=== PATIENT | female | born 1980 | race Caucasian/White ===

== ENCOUNTER 2017-07-21 20:19 | Inpatient (IN) | payer MEDICAID, OTHER ==
[2017-07-21] VITALS (12 sets, daily range): BP systolic 126–138; BP diastolic 75–88; PULSE 70–131; RESP 18
[~2017-07-21] VITALS: Ht 172.7 cm; Wt 77.0 kg
[~2017-07-21 20:19] MED LIST: DIPHTH/TETANUS/ACEL PERTUSSIS (BOOSTER) 0.5 ML VIAL/PFS IM ONE; MEASLES, MUMPS, RUBELLA VACCINE 0.5 ML VIAL SQ ONE
[2017-07-21] MEDS ORDERED: LACTATED RINGER'S 1000 ML INJ 1,000 ML IV SCH (20:55)
[2017-07-21] MEDS ORDERED: LACTATED RINGER'S 1000 ML INJ 1,000 ML IV PRN (20:55)
[2017-07-21] MEDS ORDERED: MINERAL OIL 10 ML VIAL TOPICAL PRN (21:00)
[2017-07-21] MEDS ORDERED: PENICILLIN G POTASSIUM INJ 5,000,000 UNITS in SODIUM CHLORIDE 0.9% INJ 100 ML IV ONE (21:00)
[2017-07-21] MEDS ORDERED: ONDANSETRON HCL 4 MG/2 ML VIAL IV PUSH PRN (21:00)
[2017-07-21] MEDS ORDERED: OXYTOCIN 30 UNITS-500ML PREMIX 500 ML IV ONE (21:00)
[2017-07-21] MEDS ORDERED: LIDOCAINE HCL 1% 50 ML VIAL INFIL PRN (21:00)
[2017-07-21] MEDS ORDERED: CITRIC ACID-SODIUM CITRATE LIQ 30 ML UDC PO SCH (21:00)
[2017-07-21] MEDS ORDERED: LIDOCAINE HCL 1% 50 ML VIAL I-DERMAL PRN (21:00)
[2017-07-21] MEDS ORDERED: SODIUM CHLORID 0.9% 500 ML INJ 500 ML IV PRN (21:00)
[2017-07-21] MEDS ORDERED: PREN29TA PO (21:05)
--- NOTE | 2017-07-21 21:14 | HHI.HP ---
History & Physical H&P HPI Chief Complaint vb Date Seen: Jul 21, 2017 Time Seen: 21:01 Travel History International Travel<30 Days: No Contact w/Intl Traveler<30Days: No Known Affected Area: No History of Present Illness HPI pt. presents w/ c/o vb. pt. is ? 36 weeks by fundal height and is a states been having vb. pt. states baby for adoption. pt. had intercourse last pm. irreg ctxs, +FM, no lof. on exam pt. w. noted blood in vault and cervix 8/ 100/0 w/ bulging membranes. Weeks Gestation: 36 Para: 2 : 4 Last Menstrual Period: Oct 21, 2016 : 1 History Past Medical History Medical History: Denies Significant Hx Obstetric History Obstetric History , s/p x 2, tab x 1 Past Surgical History Surgical History: No Previous Surgery Family History Family History: Negative Social History Narrative Social History +thc Alcohol Use: No Tobacco Use: Yes Substance Abuse: Yes Allergies-Medications (Allergen,Severity, Reaction): Coded Allergies: No Known Allergies (Verified Allergy, Severe, 12/28/02) Uncoded Allergies: N (Allergy, Unknown, 12/29/02) NKA (Allergy, Unknown, 12/29/02) Review of Systems Except as stated in HPI: all other systems reviewed are Neg Physical Exam Narrative GENERAL: Well-nourished, well-developed patient. SKIN: Warm and dry. HEAD: Normocephalic and atraumatic. EYES: No scleral icterus. No injection or drainage. ENT: No nasal drainage noted. Mucous membranes pink. Airway patent. NECK: Supple, trachea midline. No JVD. CARDIOVASCULAR: Regular rate and rhythm without murmurs, gallops, or rubs. RESPIRATORY: Breath sounds equal bilaterally. No accessory muscle use. ABDOMEN/GI: Abdomen soft, non-tender, bowel sounds present, no rebound, no guarding Gravid Fundal Height: 36cm GENITOURINARY: External Genitalia: intact and normal in appearance Cervix: ant Dilatation: 8 Effacement: 100 Station: 0 Presentation: cephalic Membranes: intact Uterine Contractions: irreg FHT's: Category: 1 Reactive: + Variability: mod Decels:none EXTREMITIES: No cyanosis or edema. BACK: Nontender without obvious deformity. No CVA tenderness. NEUROLOGICAL: Awake and alert. Motor and sensory grossly within normal limits. Five out of 5 muscle strength in all muscle groups. Normal speech. Data Data Vital Signs Reviewed: Yes Orders Orders Ob (2e) Additional Admit Info (07/21/17 20:54) Admit To Inpatient (07/21/17 ) Vital Signs (Adult) .Per protocol (07/21/17 20:55) Activity Oob Ad Bev (07/21/17 20:55) Heart (07/21/17 20:55) Amnioinfusion (07/21/17 20:55) Diet Npo (07/22/17 Breakfast) Lactated Ringer's 1000 Ml Inj (Lr 1000 M (07/21/17 20:55) Lactated Ringer's 1000 Ml Inj (Lr 1000 M (07/21/17 20:55) Sodium Chlorid 0.9% 500 Ml Inj (Ns 500 M (07/21/17 21:00) Sodium Chlor 0.9% 1000 Ml Inj (Ns 1000 M (07/21/17 21:15) Lidocaine 1% Inj (50 Ml) (Xylocaine 1% I (07/21/17 21:00) Citric Acid-Sodium Citrate Liq (Bicitra (07/21/17 21:00) Ondansetron Inj (Zofran Inj) (07/21/17 21:00) Fentanyl Inj (Fentanyl Inj) (07/21/17 21:00) Fentanyl Inj (Fentanyl Inj) (07/21/17 21:00) Penicillin G Potassium Inj (Pfizerpen-G (07/21/17 21:00) Penicillin G Potassium Inj (Pfizerpen-G (07/22/17 01:00) Complete Blood Count With Diff (07/21/17 20:55) Hold Clot (07/21/17 20:55) Abo/Rh Blood Type (07/21/17 20:55) Urinalysis - C+S If Indicated (07/21/17 20:55) Drug Screen, Random Urine (07/21/17 20:55) Ob/Psych Drug Screen, Urine (07/21/17 20:55) Type And Screen (07/21/17 20:55) Rapid Plasma Regin (Rpr) W Ttr (07/21/17 20:55) Hepatitis Profile (07/21/17 20:55) No Care Spec Serology (07/21/17 20:55) Resp Oxygen Non Rebreathe Mask (07/21/17 ) ^ Epidural / Intrathecal Infus (07/21/17 20:55) Oxytocin 30 Units-500ml Premix (Pitocin (07/21/17 21:00) Lidocaine 1% Inj (50 Ml) (Xylocaine 1% I (07/21/17 21:00) Light Mineral Oil (Muri-Lube Oil) (07/21/17 21:00) Inpatient Certification (07/21/17 ) MDM Medical Record Reviewed: Yes Plan pt. to be admitted. labs including hiv to be drawn. pt. in active labor. condition d/w pt. pt. to have baby for adoption and does not want to see baby. pt. to have pen for gbs unknown and ? . fentanyl vs epidural for pain. Condition: Ifeanyi Donovan Jr., MD Jul 21, 2017 21:14
[2017-07-21] MEDS ORDERED: SODIUM CHLOR 0.9% 1000 ML INJ 1,000 ML IV PRN (21:15)
[2017-07-21 21:47] LABS: BASOPHIL % 0.5 % (0.0-2.0); EOSINOPHIL # 0.1 TH/MM3 (0-0.4); EOSINOPHIL % 0.8 % (0.0-4.0); HEMATOCRIT 39.6 % (35.0-46.0); HEMOGLOBIN 14.1 GM/DL (11.6-15.3); LYMPH % 23.6 % (9.0-44.0); LYMPHOCYTE # 2.1 TH/MM3 (1.0-4.8); MEAN CORPUSCULAR HEMOGLOBIN 35.3 PG (27.0-34.0); MEAN CORPUSCULAR HGB CONC 35.7 % (32.0-36.0); MEAN PLATELET VOLUME 9.4 FL (7.0-11.0); MONO % 6.8 % (0.0-8.0); MONOCYTE # 0.6 TH/MM3 (0-0.9); NEUT % 68.3 % (16.0-70.0); PLATELET COUNT 98 TH/MM3 (150-450); RED CELL DISTRIBUTION WIDTH 12.9 % (11.6-17.2); WHITE BLOOD COUNT 8.8 TH/MM3 (4.0-11.0)
[2017-07-21 21:56] LABS: BILIRUBIN, URINE NEG (NEG); BLOOD, URINE MOD (NEG); GLUCOSE,URINE NEG (NEG); KETONE, URINE NEG (NEG); NITRITE,URINE NEG (NEG); PH, URINE 7.5 (5.0-8.5); SQUAMOUS EPITHELIAL CELL URINE 4 /hpf (0-5); URINE COLOR YELLOW (YELLW/STRAW); URINE LEUKOCYTE ESTERASE SMALL (NEG)
--- NOTE | 2017-07-21 22:25 | PD.LABORPN ---
Subjective Subjective pt. in bed. uncomfortable w/ ctxs. +FM, no lof. AROM for clear fluid. Objective Vital Signs Vital Signs Date Time Temp Pulse Resp B/P (MAP) Pulse Ox O2 Delivery O2 Flow Rate FiO2 07/21/17 21:57 18 07/21/17 21:56 85 135/86 (102) Objective Pelvic Exam: Cervix: ant Dilatation: 7 Effacement: 100 Station: 0 Presentation: cephalic Membranes: arom (clear fluid) Uterine Contractions: irreg FHT's: Category: 1 Reactive: + Variability:mod Decels:none Weeks Gestation: 36 Pt started active labor?: Yes Medical induction of labor?: No Artificial rupture of membrane: Yes Artificial ROM date: Jul 21, 2017 Artifical ROM time: 22:22 Assessment/Plan Problem List: (1) 36 weeks gestation of ICD Codes: Z3A.36 - 36 weeks gestation of Plan: pt. in active labor. arom for clear fluid. fht reassuring. expect . will continue to follow. (2) No care in current ICD Codes: O09.30 - Supervision of with insufficient care, unspecified trimester (3) labor in third trimester ICD Codes: O60.03 - labor without delivery, third trimester Ifeanyi Benitez Jr., MD Jul 21, 2017 22:25
[2017-07-21] MEDS ORDERED: ALUMINUM/MAGNESIUM/SIMETH 30 ML CUP PO PRN (23:00)
[2017-07-21] MEDS ORDERED: OXYTOCIN 30 UNITS-500ML PREMIX 500 ML IV SCH (23:00)
[2017-07-21] MEDS ORDERED: BENZOCAINE 20% TOPICAL SPRAY 60 ML CAN TOPICAL PRN (23:00)
[2017-07-21] MEDS ORDERED: ONDANSETRON ODT 4 MG TAB PO PRN (23:00)
[2017-07-21] MEDS ORDERED: SODIUM CHLORIDE 0.9% FLUSH 10 ML FLUSH IV FLUSH PRN (23:00)
[2017-07-21] MEDS ORDERED: WITCH HAZEL 50%/GLYCERIN 12.5% 40 PAD JAR TOPICAL PRN (23:00)
[2017-07-21] MEDS ORDERED: ZOLPIDEM TARTRATE 5 MG TAB PO PRN (23:00)
[2017-07-21] MEDS ORDERED: DOCUSATE SODIUM 50 MG/SENNA 8.6 MG TAB PO PRN (23:00)
--- NOTE | 2017-07-21 23:16 | PD.OB.DELI ---
Weeks gestation: 36 Pt started active labor?: Yes Medical induction of labor?: No Artificial rupture of membrane: Yes Artificial ROM date: Jul 21, 2017 Artifical ROM time: 22:22 Anesthesia: None Episiotomy: None Vaginal Delivery: Normal, Spontaneous Presentation: Occiput anterior Nuchal Cord: None Delayed cord clamping (45 sec): Yes Infant: Female Delivery date: Jul 21, 2017 Delivery time: 22:50 One Minute : 9 Five Minute : 9 Weight: pending Placenta: Spontaneous delivery, Intact, 3 vessel cord Laceration: No lacerations Estimated blood loss: 300cc Additional Information pt. have no pnc, ? 36 weeks and baby for adoption. Ifeanyi Benitez Jr., MD Jul 21, 2017 23:16
[2017-07-21] MEDS: IBUPROFEN 800 MG TAB PO PRN (23:24)
[2017-07-22 00:10] VITALS: RESP 18; TEMP 98.7
[2017-07-22 00:45] VITALS: BP 105/77; PULSE 79; RESP 17; TEMP 98.2
[2017-07-22] MEDS ORDERED: PENICILLIN G POTASSIUM INJ 2,500,000 UNITS in SODIUM CHLORIDE 0.9% INJ 100 ML IV SCH (01:00)
[2017-07-22] MEDS: ACETAMINOPHEN 325 MG TAB PO PRN ×3 (04:03→13:17)
[2017-07-22 05:56] LABS: AUTOMATED NEUTROPHIL # 5.7 TH/MM3 (1.8-7.7); BASOPHIL % 0.5 % (0.0-2.0); EOSINOPHIL % 0.4 % (0.0-4.0); HEMATOCRIT 34.8 % (35.0-46.0); HEMOGLOBIN 12.4 GM/DL (11.6-15.3); LYMPH % 25.1 % (9.0-44.0); LYMPHOCYTE # 2.1 TH/MM3 (1.0-4.8); MEAN CELL VOLUME 98.2 FL (80.0-100.0); MEAN CORPUSCULAR HGB CONC 35.6 % (32.0-36.0); MEAN PLATELET VOLUME 9.3 FL (7.0-11.0); MONO % 6.3 % (0.0-8.0); MONOCYTE # 0.5 TH/MM3 (0-0.9); NEUT % 67.7 % (16.0-70.0); PLATELET COUNT 80 TH/MM3 (150-450); RED BLOOD COUNT 3.54 MIL/MM3 (4.00-5.30); RED CELL DISTRIBUTION WIDTH 12.9 % (11.6-17.2); WHITE BLOOD COUNT 8.4 TH/MM3 (4.0-11.0)
[2017-07-22 07:40] VITALS: BP 120/80; PULSE 62; RESP 18; TEMP 98.1
--- NOTE | 2017-07-22 08:47 | HHI.OB ---
Subjective Post Day: 1 Remarks Ms Downs had no acute events overnight. AFVSS. She is PPD#1 following at 36 weeks. Her pain is controlled, tolerating PO w/o nausea, ambulating w/o dizziness, voiding and passing flatus. Lochia is equal to a period w/o clots. Pt denies leg/calf pain. The baby is being placed for adoption; no assistance required. Objective Vitals/I&O Vital Signs Date Time Temp Pulse Resp B/P (MAP) Pulse Ox O2 Delivery O2 Flow Rate FiO2 07/22/17 00:45 98.2 79 17 105/77 (86) 07/22/17 00:10 98.7 18 07/21/17 23:58 73 136/88 (104) 07/21/17 23:55 18 07/21/17 23:46 81 131/82 (98) 07/21/17 23:33 18 07/21/17 23:32 76 130/82 (98) 07/21/17 23:30 82 07/21/17 23:16 70 138/84 (102) 07/21/17 23:15 18 07/21/17 23:02 18 07/21/17 23:01 131 126/75 (92) 07/21/17 21:57 18 07/21/17 21:56 85 135/86 (102) Objective Remarks GENERAL: Well-nourished, well-developed patient. CARDIOVASCULAR: Regular rate and rhythm without murmurs, gallops, or rubs. RESPIRATORY: Breath sounds equal bilaterally. No accessory muscle use. ABDOMEN/GI: Abdomen soft, non-tender. Fundus: Firm, non-tender at umbilicus. GENITOURINARY: Light to moderate bleeding. EXTREMITIES: No cyanosis or edema, non-tender, without signs of DVT. Medications and IVs Current Medications Medications (Trade) Dose Ordered Sig/Grzegorz Route Start Time Stop Time Status Last Admin Lactated Ringer's 1,000 ml @ 125 mls/hr Q8H IV 07/21/17 20:55 07/21/17 21:47 Lactated Ringer's 1,000 ml @ 3,000 mls/hr Q20M PRN IV 07/21/17 20:55 Sodium Chloride 500 ml @ 1,000 mls/hr ONCE PRN IV 07/21/17 21:00 Sodium Chloride 1,000 ml @ 100 mls/hr Q10H PRN IV 07/21/17 21:15 (Xylocaine 1% Inj (50 ml)) 0.1 ml UNSCH X1 PRN I-DERMAL 07/21/17 21:00 07/24/17 20:59 (Bicitra Liq) 30 ml NET SQL DEVELOPER PO 07/21/17 21:00 07/25/17 20:59 (Zofran Inj) 4 mg Q6H PRN IV PUSH 07/21/17 21:00 (fentaNYL INJ) 50 mcg Q1H PRN IV PUSH 07/21/17 21:00 (fentaNYL INJ) 100 mcg Q1H PRN IV PUSH 07/21/17 21:00 Penicillin G Potassium 2718625 units/Sodium Chloride 100 ml @ 200 mls/hr Q4H IV 07/22/17 01:00 (Xylocaine 1% Inj (50 ml)) 10 ml UNSCH X1 PRN INFIL 07/21/17 21:00 07/23/17 20:59 (Muri-Lube Oil) 10 ml UNSCH PRN TOPICAL 07/21/17 21:00 (NS Flush) 2 ml BID IV FLUSH 07/22/17 09:00 (NS Flush) 2 ml UNSCH PRN IV FLUSH 07/21/17 23:00 (Tylenol) 650 mg Q4H PRN PO 07/21/17 23:00 07/22/17 04:03 (Motrin) 800 mg Q8H PRN PO 07/21/17 23:00 07/21/17 23:24 (Americaine 20% Top Spr) 1 spray Q4H PRN TOPICAL 07/21/17 23:00 (Tucks Pads) 1 applic QID PRN TOPICAL 07/21/17 23:00 (Lauren-Colace) 2 tab Q12H PRN PO 07/21/17 23:00 (Ambien) 5 mg HS PRN PO 07/21/17 23:00 (Mag-Al Plus Susp Liq) 15 ml Q8H PRN PO 07/21/17 23:00 (Zofran Odt) 4 mg Q6H PRN PO 07/21/17 23:00 Assessment/Plan Problem List: (1) 36 weeks gestation of ICD Codes: Z3A.36 - 36 weeks gestation of Plan: pt. PPD#1 after delivery at 36wks (2) No care in current ICD Codes: O09.30 - Supervision of with insufficient care, unspecified trimester Plan: RPR pending Hep B surface antigen indeterminate (3) labor in third trimester ICD Codes: O60.03 - labor without delivery, third trimester Status: Resolved Qualifiers: Plan: 37YO delivered at 36wks and is PPD#1. AFVSS and physical exam benign. Pt recovering well, lochia normal. Pain controlled, PO, ambulating, voiding, flatus but no BM yet. 1. Routine care -Motrin PO PRN -PO fluids -Encourage ambulation -Will discuss control options -Baby being placed for adoption Pt seen with Dr Anushka Pulido and marian Benitez Discharge Planning Likely 07/23/17 Ghanshyam Marx MD R1 Jul 22, 2017 08:47
[2017-07-22] MEDS ORDERED: SODIUM CHLORIDE 0.9% FLUSH 10 ML FLUSH IV FLUSH SCH (09:00)
[2017-07-22] MEDS: IBUPROFEN 800 MG TAB PO PRN ×2 (09:06→19:29)
[2017-07-22 19:25] VITALS: BP 117/69; PULSE 64; RESP 16; TEMP 98.1
[2017-07-23] MEDS ORDERED: ACET325T15 PO (07:24)
[2017-07-23] MEDS ORDERED: IBUP1TAB7 PO (07:24)
--- NOTE | 2017-07-23 07:25 | HHI.DCPOC ---
Discharge Care Plan Diagnosis: (1) Vaginal delivery Report Symptoms to Your Doctor -Temperature above 100.5 degrees -Redness, of incision or excessive or foul smelling drainage -Unusual pain or calf pain -Increased vaginal bleeding -Painful or difficulty urinating -Feelings of extreme sadness or anxiety after 2 weeks Goals to Promote Your Health * To prevent worsening of your condition and complications * To maintain your health at the optimal level Directions to Meet Your Goals Take your medications as prescribed Follow your dietary instruction Follow activity as directed Ensure plenty of rest for recovery Drink fluids for hydration Keep your appointments as scheduled Take your immunizations and boosters as scheduled If your symptoms worsen call your PCP, if no PCP go to Urgent Care Center or Emergency Room Smoking is Dangerous to Your Health. Avoid second hand smoke Call the 24-hour crisis hotline for domestic abuse at Jeanette Pulido MD Jul 23, 2017 07:25
[2017-07-23] MEDS ORDERED: NORE0.354 PO (07:28)
--- NOTE | 2017-07-23 07:30 | HHI.OB ---
Subjective Post Day: 2 Remarks No acute overnight events. AFVSS. She is PPD#2 following at 36 weeks. Her pain is controlled with ibuprofen, tolerating PO w/o nausea, ambulating w/o dizziness, voiding and passing flatus. Lochia is equal to a period w/o clots. Pt denies leg/calf pain. The baby is being placed for adoption; no assistance required. She wants minipill and denies personal or family history of breast cancer, migraine, blood clot, HTN. Objective Vitals/I&O Vital Signs Date Time Temp Pulse Resp B/P (MAP) Pulse Ox O2 Delivery O2 Flow Rate FiO2 07/22/17 19:25 98.1 64 16 117/69 (85) 07/22/17 07:40 98.1 62 18 120/80 (93) Objective Remarks GENERAL: Well-nourished, well-developed patient. CARDIOVASCULAR: Regular rate and rhythm without murmurs, gallops, or rubs. RESPIRATORY: Breath sounds equal bilaterally. No accessory muscle use. ABDOMEN/GI: Abdomen soft, non-tender. Fundus: Firm, non-tender at umbilicus. GENITOURINARY: Light to moderate bleeding. EXTREMITIES: No cyanosis or edema, non-tender, without signs of DVT. Medications and IVs Current Medications Medications (Trade) Dose Ordered Sig/Grzegorz Route Start Time Stop Time Status Last Admin Lactated Ringer's 1,000 ml @ 125 mls/hr Q8H IV 07/21/17 20:55 07/21/17 21:47 Lactated Ringer's 1,000 ml @ 3,000 mls/hr Q20M PRN IV 07/21/17 20:55 Sodium Chloride 500 ml @ 1,000 mls/hr ONCE PRN IV 07/21/17 21:00 Sodium Chloride 1,000 ml @ 100 mls/hr Q10H PRN IV 07/21/17 21:15 (Xylocaine 1% Inj (50 ml)) 0.1 ml UNSCH X1 PRN I-DERMAL 07/21/17 21:00 07/24/17 20:59 (Bicitra Liq) 30 ml ADMITTING COUNSELOR PO 07/21/17 21:00 07/25/17 20:59 (Zofran Inj) 4 mg Q6H PRN IV PUSH 07/21/17 21:00 (fentaNYL INJ) 50 mcg Q1H PRN IV PUSH 07/21/17 21:00 (fentaNYL INJ) 100 mcg Q1H PRN IV PUSH 07/21/17 21:00 Penicillin G Potassium [id number] units/Sodium Chloride 100 ml @ 200 mls/hr Q4H IV 07/22/17 01:00 (Xylocaine 1% Inj (50 ml)) 10 ml UNSCH X1 PRN INFIL 07/21/17 21:00 07/23/17 20:59 (Muri-Lube Oil) 10 ml UNSCH PRN TOPICAL 07/21/17 21:00 (NS Flush) 2 ml BID IV FLUSH 07/22/17 09:00 (NS Flush) 2 ml UNSCH PRN IV FLUSH 07/21/17 23:00 (Tylenol) 650 mg Q4H PRN PO 07/21/17 23:00 07/22/17 13:17 (Motrin) 800 mg Q8H PRN PO 07/21/17 23:00 07/22/17 19:29 (Americaine 20% Top Spr) 1 spray Q4H PRN TOPICAL 07/21/17 23:00 (Tucks Pads) 1 applic QID PRN TOPICAL 07/21/17 23:00 (Lauren-Colace) 2 tab Q12H PRN PO 07/21/17 23:00 07/22/17 09:07 (Ambien) 5 mg HS PRN PO 07/21/17 23:00 (Mag-Al Plus Susp Liq) 15 ml Q8H PRN PO 07/21/17 23:00 (Zofran Odt) 4 mg Q6H PRN PO 07/21/17 23:00 Assessment/Plan Problem List: (1) 36 weeks gestation of ICD Codes: Z3A.36 - 36 weeks gestation of Plan: pt. PPD#1 after delivery at 36wks (2) No care in current ICD Codes: O09.30 - Supervision of with insufficient care, unspecified trimester Plan: RPR pending Hep B surface antigen indeterminate (3) labor in third trimester ICD Codes: O60.03 - labor without delivery, third trimester Status: Resolved Qualifiers: Plan: 37YO delivered at 36wks and is PPD#2. AFVSS and physical exam benign. 1. Routine care -Motrin and acetaminophen PO PRN -PO fluids -Encourage ambulation -Minipill ordered, 30 day supply at discharged. Counseled for 6 wk f/u with PCP. Counseled for nothing in vaginal for 6 weeks. -Baby being placed for adoption, case mgmt consulted, paperwork to be signed this morning per pt DW Dr. Marx and Dr. Hernandez Discharge Planning D/c today Jeanette Pulido MD Jul 23, 2017 07:30
[2017-07-30 23:51] LABS: HEPATITIS B SAG SCREEN NONREACTIVE (NON-REACTIV)
== END 2017-07-23 10:45 | disposition home or self-care (01) | DRG 775 ==
LOC: HOBED 20:19 → H2EB 20:57 → H1EA 07-22 00:11
PROVIDERS: ADMIT Obstetrics & Gynecology; ATTEND Obstetrics & Gynecology
PROC: 10E0XZZ Delivery of Products of Conception, External Approach (ICD-10-PCS; principal; 2017-07-21)
DX: O60.14X0 Preterm labor third trimester with preterm delivery third trimester, not applicable or unspecified (principal); F17.210 Nicotine dependence, cigarettes, uncomplicated; O99.334 Smoking (tobacco) complicating childbirth; Z37.0 Single live birth; Z3A.36 36 weeks gestation of pregnancy
CPT/HCPCS: 59025; 80074; 80307; 81001; 85025; 86592; 86703; 86850; 86900; 86901; 87341; 88307; G0481; J2540; J2590; J7120